=== PATIENT | female | born 1950 | race Caucasian/White ===

== ENCOUNTER → 2016-06-27 | Outpatient (CLI) | payer MEDICARE, OTHER | END | disposition home or self-care (01) | LOC: CFH 13:32 | PROVIDERS: ATTEND Nurse Practitioner Family | DX: Z12.31 Encounter for screening mammogram for malignant neoplasm of breast (principal); Z13.820 Encounter for screening for osteoporosis; M85.80 Other specified disorders of bone density and structure, unspecified site; M81.0 Age-related osteoporosis without current pathological fracture | CPT/HCPCS: 77080; G0202 ==

== ENCOUNTER → 2016-11-24 | Outpatient (CLI) | payer MEDICARE, OTHER | END | disposition home or self-care (01) | LOC: CFH 12:39 | PROVIDERS: ATTEND Physician Assistant Surgical | DX: M41.86 Other forms of scoliosis, lumbar region (principal); M51.36 Other intervertebral disc degeneration, lumbar region; M48.06 Spinal stenosis, lumbar region; M50.322 Other cervical disc degeneration at C5-C6 level; M50.21 Other cervical disc displacement, high cervical region; M47.892 Other spondylosis, cervical region; M51.34 Other intervertebral disc degeneration, thoracic region; M47.894 Other spondylosis, thoracic region; M48.04 Spinal stenosis, thoracic region; M41.84 Other forms of scoliosis, thoracic region; M25.78 Osteophyte, vertebrae; M16.0 Bilateral primary osteoarthritis of hip; M25.511 Pain in right shoulder; R20.0 Anesthesia of skin | CPT/HCPCS: 72082; 72141; 72146; 72148 ==

== ENCOUNTER → 2018-04-29 | Outpatient (CLI) | payer MEDICARE | END | disposition home or self-care (01) | LOC: CFH 08:31 | PROVIDERS: ATTEND Nurse Practitioner | DX: Z12.31 Encounter for screening mammogram for malignant neoplasm of breast (principal) | CPT/HCPCS: 77067 ==

== ENCOUNTER → 2018-04-29 | Outpatient (CLI) | payer MEDICARE | END | disposition home or self-care (01) | LOC: RAD 09:30 | PROVIDERS: ATTEND Physical Medicine & Rehabilitation | DX: M19.011 Primary osteoarthritis, right shoulder (principal) ==

== ENCOUNTER 2019-05-22 08:18 | Outpatient (CLI) | payer MEDICARE | END 2019-05-22 23:59 | disposition home or self-care (01) | LOC: CFH 08:18 | PROVIDERS: ATTEND Nurse Practitioner Family | DX: Z12.31 Encounter for screening mammogram for malignant neoplasm of breast (principal) | CPT/HCPCS: 77063; 77067 ==

== ENCOUNTER 2020-07-13 10:43 | Outpatient (CLI) | payer MEDICARE ==
[2020-10-01] MEDS ORDERED: TRIA15CR61 TP (00:31)
[2020-10-01] MEDS ORDERED: LEVO175T2 PO (00:31)
[2020-10-01] MEDS ORDERED: SUMA100T4 PO (00:31)
[2020-10-01] MEDS ORDERED: TOPI100T8 PO (00:31)
[2020-10-01] MEDS ORDERED: AMIT100T PO (00:31)
[2020-10-01] MEDS ORDERED: HYDR1TAB53 PO (00:31)
[2020-10-01] MEDS ORDERED: TRAZ150T62 PO (00:31)
[2020-10-01] MEDS ORDERED: PRAZ1CAP2 PO (00:31)
[2020-10-01] MEDS ORDERED: OMEP20CA20 PO (00:31)
[2020-10-04] MEDS ORDERED: LEVO112T2 PO (15:36)
[2020-10-04] MEDS ORDERED: ASPI-963 PO (15:40)
== END 2020-07-13 23:59 | disposition home or self-care (01) ==
LOC: CFH 10:43
PROVIDERS: ATTEND Genetic Counselor, MS
DX: Z12.31 Encounter for screening mammogram for malignant neoplasm of breast (principal)
CPT/HCPCS: 77063; 77067